=== PATIENT | male | born 1990 | race Caucasian/White ===

== ENCOUNTER 2018-07-31 22:16 | Emergency (ER) | payer BC ==
[~2018-07-31] VITALS: Ht 172.7 cm; Wt 95.3 kg
[~2018-07-31 22:16] MED LIST: PERCOCET 325 MG1 TA2 PO; PHENERGAN25 M1 PO; SILVADENE1% TP
[2018-07-31 22:19] VITALS: BP 117/65
== END 2018-08-01 00:02 | disposition home or self-care (01) ==
LOC: ED 22:16
DX: S61.211A Laceration without foreign body of left index finger without damage to nail, initial encounter (principal); W26.9XXA Contact with unspecified sharp object(s), initial encounter; Y93.89 Activity, other specified; Y92.89 Other specified places as the place of occurrence of the external cause; Y99.8 Other external cause status

== ENCOUNTER 2021-03-12 01:24 | Inpatient (IN) | payer BC ==
[~2021-03-12] VITALS: Ht 172.7 cm; Wt 87.3 kg
[2021-03-12 01:27] VITALS: BP 133/80
[2021-03-12 01:42] LABS: BASO % 0.3 % (0.0-1.0); HEMATOCRIT 45.2 % (42.0-52.0); LYMPH # 0.9 10*3/uL (1.3-4.4); LYMPH % 11.5 % (27.0-41.0); MEAN CELL VOLUME 85.4 fl (80.0-94.0); MEAN CORPUSCULAR HGB 29.5 pg (27.0-31.0); MEAN CORPUSCULAR HGB CONC 34.5 g/dl (33.0-37.0); MONO # 0.8 10*3/uL (0.1-1.0); MONO % 10.7 % (3.0-9.0); NEUT # 5.8 10*3/uL (2.3-7.9); NEUT % 77.1 % (47.0-73.0); PLATELET COUNT AUTOMATED 259 10*3/uL (130-400); RED BLOOD COUNT 5.29 10*6/uL (4.50-5.90); WHITE BLOOD COUNT 7.5 10*3/uL (4.8-10.8)
[2021-03-12 02:08] LABS: ALKALINE PHOSPHATASE 82 U/L (45-117); BUN 18 mg/dl (7-24); CHLORIDE 98 mmol/L (98-107); CREATININE 1.08 mg/dL (0.70-1.30); SGOT/AST 119 IU/L (3-35); SGPT/ALT 126 U/L (12-78); SODIUM 135 mmol/L (136-145); TOTAL PROTEIN 8.2 gm/dL (6.4-8.2)
[2021-03-12 02:41] VITALS: BP 127/74
[2021-03-12 05:33] LABS: ALBUMIN 3.1 gm/dl (3.1-4.5); BUN 18 mg/dl (7-24); CHLORIDE 101 mmol/L (98-107); CHOLESTEROL 132 mg/dL (<200); CREATININE 0.99 mg/dL (0.70-1.30); POTASSIUM 3.7 mmol/L (3.5-5.1); SGOT/AST 147 IU/L (3-35); SGPT/ALT 143 U/L (12-78); SODIUM 134 mmol/L (136-145); TOTAL PROTEIN 8.4 gm/dL (6.4-8.2); TRIGLYCERIDES 173 mg/dl (<150)
[2021-03-12 05:40] LABS: ALKALINE PHOSPHATASE 88 U/L (45-117); LDL CHOLESTEROL 72 mg/dL (9-159); THYROID STIM HORMONE (HS) 0.629 uIU/ml (0.358-4.75)
[2021-03-12 06:12] VITALS: BP 114/80
[2021-03-12 06:20] LABS: BASO % 0.3 % (0.0-1.0); HEMATOCRIT 46.1 % (42.0-52.0); LYMPH # 0.4 10*3/uL (1.3-4.4); LYMPH % 5.4 % (27.0-41.0); MEAN CELL VOLUME 85.8 fl (80.0-94.0); MEAN CORPUSCULAR HGB 29.2 pg (27.0-31.0); MEAN CORPUSCULAR HGB CONC 34.1 g/dl (33.0-37.0); MONO # 0.4 10*3/uL (0.1-1.0); MONO % 5.8 % (3.0-9.0); NEUT # 6.7 10*3/uL (2.3-7.9); NEUT % 88.2 % (47.0-73.0); PLATELET COUNT AUTOMATED 239 10*3/uL (130-400); RED BLOOD COUNT 5.37 10*6/uL (4.50-5.90); RED CELL DISTRI WIDTH 13.2 % (0-14.5); WHITE BLOOD COUNT 7.6 10*3/uL (4.8-10.8)
[2021-03-12 06:28] LABS: ACT PARTIAL THROMBO TIME 41.9 SECONDS (20.0-32.1)
[2021-03-12 06:45] LABS: VITAMIN D, 25-HYDROXY 50.3 ng/mL (30-100)
[2021-03-12 09:15] VITALS: BP 127/79
[2021-03-12 12:00] VITALS: BP 123/72
[2021-03-12 20:00] VITALS: BP 125/85
[2021-03-13] VITALS: BP 128/81
[2021-03-13 06:57] LABS: BASO % 0.1 % (0.0-1.0); HEMATOCRIT 44.8 % (42.0-52.0); LYMPH # 0.7 10*3/uL (1.3-4.4); LYMPH % 6.5 % (27.0-41.0); MEAN CELL VOLUME 86.3 fl (80.0-94.0); MEAN CORPUSCULAR HGB 29.3 pg (27.0-31.0); MEAN CORPUSCULAR HGB CONC 33.9 g/dl (33.0-37.0); MEAN PLATELET VOLUME 11.3 fl (9.6-12.3); MONO # 1.1 10*3/uL (0.1-1.0); MONO % 9.9 % (3.0-9.0); NEUT # 9.4 10*3/uL (2.3-7.9); NEUT % 82.9 % (47.0-73.0); RED BLOOD COUNT 5.19 10*6/uL (4.50-5.90); RED CELL DISTRI WIDTH 13.1 % (0-14.5); WHITE BLOOD COUNT 11.4 10*3/uL (4.8-10.8)
[2021-03-13 06:59] LABS: PLATELET COUNT AUTOMATED 340 10*3/uL (130-400)
[2021-03-13 07:10] LABS: ALBUMIN 2.8 gm/dl (3.1-4.5); BUN 26 mg/dl (7-24); CHLORIDE 102 mmol/L (98-107); CREATININE 0.93 mg/dL (0.70-1.30); POTASSIUM 3.8 mmol/L (3.5-5.1); SGOT/AST 196 IU/L (3-35); SGPT/ALT 283 U/L (12-78); SODIUM 135 mmol/L (136-145); TOTAL PROTEIN 7.7 gm/dL (6.4-8.2)
[2021-03-13 07:12] LABS: ALKALINE PHOSPHATASE 97 U/L (45-117)
[2021-03-13 08:00] VITALS: BP 113/65
[2021-03-13 12:00] VITALS: BP 108/966
[2021-03-13 16:00] VITALS: BP 110/68
[2021-03-13 20:00] VITALS: BP 112/72
[2021-03-14] VITALS: BP 110/61
[2021-03-14 07:33] LABS: HEMATOCRIT 43.8 % (42.0-52.0); MEAN CELL VOLUME 86.7 fl (80.0-94.0); MEAN CORPUSCULAR HGB 28.9 pg (27.0-31.0); MEAN CORPUSCULAR HGB CONC 33.3 g/dl (33.0-37.0); MEAN PLATELET VOLUME 11.5 fl (9.6-12.3); PLATELET COUNT AUTOMATED 353 10*3/uL (130-400); RED BLOOD COUNT 5.05 10*6/uL (4.50-5.90); RED CELL DISTRI WIDTH 13.2 % (0-14.5); WHITE BLOOD COUNT 9.5 10*3/uL (4.8-10.8)
[2021-03-14 07:58] LABS: ALBUMIN 2.6 gm/dl (3.1-4.5); ALKALINE PHOSPHATASE 86 U/L (45-117); BUN 23 mg/dl (7-24); CHLORIDE 102 mmol/L (98-107); CREATININE 0.74 mg/dL (0.70-1.30); POTASSIUM 3.8 mmol/L (3.5-5.1); SGOT/AST 76 IU/L (3-35); SGPT/ALT 196 U/L (12-78); SODIUM 137 mmol/L (136-145); TOTAL PROTEIN 7.4 gm/dL (6.4-8.2)
[2021-03-14 08:00] VITALS: BP 109/63
[2021-03-14 08:46] LABS: ATYPICAL LYMPHS 1 % (0-0); PLATELET SUFFICIENCY NORMAL (NORMAL); TOTAL CELLS COUNTED 100 #CELLS
[2021-03-14 12:00] VITALS: BP 108/43
[2021-03-14 16:00] VITALS: BP 118/68
[2021-03-14 20:00] VITALS: BP 105/50
[2021-03-15] VITALS: BP 110/70
[2021-03-15 06:12] LABS: ALBUMIN 2.6 gm/dl (3.1-4.5); BUN 20 mg/dl (7-24); CHLORIDE 102 mmol/L (98-107); CREATININE 0.88 mg/dL (0.70-1.30); POTASSIUM 3.9 mmol/L (3.5-5.1); SGOT/AST 36 IU/L (3-35); SGPT/ALT 149 U/L (12-78); SODIUM 138 mmol/L (136-145); TOTAL PROTEIN 7.2 gm/dL (6.4-8.2)
[2021-03-15 06:13] LABS: ALKALINE PHOSPHATASE 76 U/L (45-117)
[2021-03-15 06:14] LABS: BASO % 0.3 % (0.0-1.0); EOS # 0.1 10*3/uL (0.0-0.4); EOS % 0.7 % (1.0-4.0); HEMATOCRIT 45.7 % (42.0-52.0); LYMPH # 1.6 10*3/uL (1.3-4.4); LYMPH % 16.1 % (27.0-41.0); MEAN CELL VOLUME 88.6 fl (80.0-94.0); MEAN CORPUSCULAR HGB 29.1 pg (27.0-31.0); MEAN CORPUSCULAR HGB CONC 32.8 g/dl (33.0-37.0); MEAN PLATELET VOLUME 11.5 fl (9.6-12.3); MONO # 1.2 10*3/uL (0.1-1.0); MONO % 12.6 % (3.0-9.0); NEUT # 6.8 10*3/uL (2.3-7.9); NEUT % 69.6 % (47.0-73.0); PLATELET COUNT AUTOMATED 393 10*3/uL (130-400); RED BLOOD COUNT 5.16 10*6/uL (4.50-5.90); RED CELL DISTRI WIDTH 13.1 % (0-14.5); WHITE BLOOD COUNT 9.8 10*3/uL (4.8-10.8)
[2021-03-15 08:00] VITALS: BP 118/71
[2021-03-15] MEDS ORDERED: DECADRON6 M1 PO (11:47)
[2021-03-15] MEDS ORDERED: MUCUS RELIEF600 MG PO (11:47)
[2021-03-15] MEDS ORDERED: VENT7GM INH (11:47)
[2021-03-15 12:00] VITALS: BP 107/74
== END 2021-03-15 14:15 | disposition home or self-care (01) | DRG 178 ==
LOC: ED 01:24 → EDHOLD 02:34 → 4E 02:34
PROVIDERS: Hospitalist; Internal Medicine; Registered Nurse; ADMIT Emergency Medicine; ATTEND Emergency Medicine
PROC: XW033E5 Introduction of Remdesivir Anti-infective into Peripheral Vein, Percutaneous Approach, New Technology Group 5 (ICD-10-PCS; principal; 2021-03-13)
DX: U07.1 COVID-19 (principal); E44.0 Moderate protein-calorie malnutrition; E88.09 Other disorders of plasma-protein metabolism, not elsewhere classified; E78.1 Pure hyperglyceridemia; Z68.29 Body mass index [BMI] 29.0-29.9, adult; R73.9 Hyperglycemia, unspecified; R74.01 Elevation of levels of liver transaminase levels

== ENCOUNTER 2024-07-18 17:57 | Emergency (ER) | payer BC ==
[~2024-07-18] VITALS: Ht 175.2 cm; Wt 104.3 kg
[~2024-07-18 17:57] MED LIST changes: +DECADRON6 M1 PO; +MUCUS RELIEF600 MG PO; +VENT7GM INH
[2024-07-18] MEDS ORDERED: Acetaminophen/Oxycodone 5 MG/325 MG TABLET PO ONE (18:05)
[2024-07-18 18:06] VITALS: BP 142/100
[2024-07-18] MEDS ORDERED: MELOXICAM15 MG PO (18:45)
== END 2024-07-18 19:05 | disposition home or self-care (01) ==
LOC: ED 17:57
DX: S43.151A Posterior dislocation of right acromioclavicular joint, initial encounter (principal); S09.8XXA Other specified injuries of head, initial encounter; R41.3 Other amnesia; Z86.16 Personal history of COVID-19; Z98.890 Other specified postprocedural states; V86.55XA Driver of 3- or 4- wheeled all-terrain vehicle (ATV) injured in nontraffic accident, initial encounter; Y93.89 Activity, other specified; Y92.410 Unspecified street and highway as the place of occurrence of the external cause; Y99.8 Other external cause status